=== PATIENT | female | born 1980 | race Caucasian/White ===

== ENCOUNTER 2016-04-22 22:53 | Emergency (ER) | payer OTHER ==
--- NOTE | 2016-04-23 00:02 | DIAGNOSTIC IMAGING REPORT ---
PROCEDURE: XR CHEST 2 VIEW INDICATION: CHEST PAIN TECHNIQUE: PA and lateral views. COMPARISON: None. FINDINGS: Lungs are clear. Heart and mediastinum are normal. Thorax is normal. IMPRESSION: 1. Negative chest.
--- NOTE | 2016-04-23 03:49 | ED ORDER SUMMARY ---
..... Patient: YARED ROSADO OrderSheet [facility] VisitID: [id number] [place] [address] 36y, F Registration Date/Time: 04/22/2016 ORDER SHEET Weight: 101.6 kg (stated) Allergies: Aspirin, Penicillins GENERAL ORDERS: EKG - ER Stat (23:01 04/22/2016 Donna Burgos) (Ack 23:15 CHagerty ER Yard Inspector) (23:22 SReitz R.N.) Chest 2V Urgent (23:12 04/22/2016 Donna Burgos) (Ack 23:15 CHagerty ER Yard Inspector) (0:08 GUnger) Thread Grinder Tool (Continuous) (cp) (23:12 04/22/2016 Donna Burgos) (23:22 Hernandezitz R.N.) CBC w Diff Urgent (23:13 04/22/2016 Donan Burgos) (Ack 23:15 CHagerty ER Yard Inspector) (3:23 HKone R.N.) CMP Urgent (23:13 04/22/2016 Donna Burgos) (Ack 23:15 CHagerty ER Yard Inspector) (3:23 HKone R.N.) Troponin-I Urgent (23:13 04/22/2016 Donna Burgos) (Ack 23:15 CHagerty ER Yard Inspector) (3:23 HKone R.N.) Pulse oximeter (23:13 04/22/2016 Donna Burgos) (23:22 SReitz R.N.) UA-Culture if indicated Urgent (23:14 04/22/2016 Donna Burgos) (Ack 23:15 CHagerty ER Yard Inspector) (3:23 HKone R.N.) Urine Drug Screen Urgent (23:14 04/22/2016 Donna Burgos) (Ack 23:15 CHagerty ER Yard Inspector) (3:23 HKone R.N.) Troponin-I (redraw 2 hours after first trop) Urgent (01:29 04/23/2016 Donna Burgos) (Ack 1:36 CHagerty ER Yard Inspector) (3:23 HKone R.N.) Troponin-I Urgent (09:26 04/23/2016 Donna Burgos) (9:46 DMaziarka R.N.) MEDICATION ORDERS: NitroGLYCERIN SL 0.4 mg (x3 PRN chest pain. hold for SB < 120 or map < 65) (23:13 04/22/2016 Donna Burgos) (1:01 HKone R.N.) Macrobid PO 100 mg (NOW) (03:19 04/23/2016 Donna Burgos) (Ack 3:19 HKone R.N.) (3:23 HKone R.N.) GI Cocktail WHITE PO 30 mL (NOW) (03:23 04/23/2016 Donna Burgos) (Ack 3:29 HKone R.N.) (3:34 HKone R.N.) NitroGLYCERIN SL 0.4 mg (x3 PRN Chest Pain) (03:41 04/23/2016 Donna Burgos) (3:47 HKone R.N.) Plavix PO 600 mg (HIGH ALERT MEDICATION, NOW) (03:47 04/23/2016 Donna Burgos) (Ack 3:57 HKone R.N.) (4:08 HKone R.N.) Acetaminophen PO 650 mg (NOW) (07:16 04/23/2016 DMaziarka R.N. verbal order read back to Donna Burgos) (Ack 7:16 DMaziarka R.N.) (7:19 DMaziarka R.N.) IV FLUIDS: Zofran IV 4 mg (NOW) (23:12 04/22/2016 Donna Burgos) (0:54 EBonham) IV Saline Lock (23:13 04/22/2016 Donna Burgos) (0:53 EBonham) Metoprolol IV 5 mg (NOW) (07:46 04/23/2016 Jermaineziarka R.NBabak verbal order read back to Donna Burgos) (7:47 DMaziarka R.N.) Metoprolol IV 5 mg (HIGH ALERT MEDICATION, NOW) (08:05 04/23/2016 Donna Burgos) (Cancelled: Duplicate Order8:05 Donna Burgos) ORDER SHEET NOTES: [Electronically signed by Austin Washington Dr. (10:54 04/23/2016)] [Electronically signed by Melissa Avelar R.N. (13:39 04/23/2016)] [Electronically locked/signed by Melissa Avelar R.N. (13:39 04/23/2016)]
--- NOTE | 2016-04-23 03:49 | ED CLINICAL REPORT ---
Clinical Report - Physicians/Mid Levels [facility] [address] [place] [address] 04/22/2016 22:54 Patient: YARED ROSADO Arrived- By private vehicle. Historian- patient. HISTORY OF PRESENT ILLNESS Chief Complaint: CHEST PAIN. At its maximum, severity described as severe. When seen in the E.D., severity described as severe. Modifying factors- (worsened by laying back. does not know what makes it better). This started past 2 weeks and is still present and worsening. It was abrupt in onset and has been intermittent but is not gone now. It is described as tightness and it is described as located in the right chest, central chest and left chest area. No radiation. No nausea, vomiting, difficulty breathing or diaphoresis. No additional chest pain. Similar symptoms previously: None. Recent medical care: Not recently seen/assessed. REVIEW OF SYSTEMS No fever, chills, abdominal pain or skin rash. All systems otherwise negative, except as recorded above. PAST HISTORY See nurses notes. Risk factors (reports no hemoptysis, leg swelling, recent trauma, travel) Denies the following risk factors for DVT/PE - history of DVT and pulmonary embolism, recent surgery, recent MA and congestive heart failure. Denies the following risk factors for DVT/PE - cancer, clotting disorder, estrogens, immobility and advanced in age. Denies the following risk factors for DVT/PE - vena cava filter. SOCIAL HISTORY Smoker- current status unknown. History of drug use. Is a recovering addict. No alcohol use. No recent travel. Is a local resident. FAMILY HISTORY History of heart disease (grandparents in there 50 - 60s with CHF). ADDITIONAL NOTES The nursing notes have been reviewed. PHYSICAL EXAM Vital Signs: 04/22/2016 23:01 BP: 177/92. HR: 84. RR: 18. O2 saturation: 98%. Temp: 98 F. Pain level now: 10/10. Hypertensive. Oxygen saturation normal. Appearance: Alert. Oriented X3. Patient in mild distress. No marfanoid habitus. Eyes: Pupils equal, round and reactive to light. Eyes normal inspection. ENT: Ears normal. Nose normal. Pharynx normal. Neck: Normal inspection. Neck supple. No JVD, carotid bruit or meningeal signs. CVS: Normal heart rate and rhythm. Heart sounds normal. Pulses normal. Respiratory: No respiratory distress. Breath sounds normal. Chest nontender. Abdomen: Soft and nontender. Bowel sounds normal. No organomegaly. No mass. Femoral pulses equal. No femoral pulse deficit. Back: Normal external inspection. Skin: No cyanosis. Skin warm and dry. Normal skin color. No rash. Normal skin turgor. No skin rash or diaphoresis. Extremities: Extremities exhibit normal ROM. No lower extremity edema. No calf tenderness. No lower extremity edema. Neuro: Oriented X 3. No motor deficit. No sensory deficit. LABS, X-RAYS, AND EKG EKG: No acute ischemia. Normal sinus rhythm. Rate: 80. First-degree atrioventricular block (210). Normal QRS complex. Normal axis. Normal ST and T waves and QT. Prolonged QTc (495). 1st degree block. sinus with prolonged QTC. The study has been interpreted contemporaneously by me. The study has been independently viewed by me. Artifact present. I agree with and confirm the computer reading of the EKG. Chest X-ray: (PROCEDURE: XR CHEST 2 VIEW INDICATION: CHEST PAIN TECHNIQUE: PA and lateral views. COMPARISON: None. FINDINGS: Lungs are clear. Heart and mediastinum are normal. Thorax is normal. IMPRESSION: 1. Negative chest.). Views: PA and lateral. Technique: good. The X-rays were independently viewed by me and interpreted by the radiologist. The X-rays were discussed with the radiologist (via pacs). Laboratory Tests: UA-Culture if indicated: (MAEGAN: 04/23/2016 02:25) ( MsgRcvd 04/23/2016 02:42) Final results Test Result Flag Units (Reference) URINE COLOR YELLOW URINE APPEARANCE CLEAR URINE GLUCOSE NEGATIVE (NEGATIVE) URINE BILIRUBIN NEGATIVE (NEGATIVE) URINE KETONE NEGATIVE (NEGATIVE) URINE SPECIFIC GRAVITY >= 1.030 (1.010-1.030) URINE PH 6.0 (5.0-8.0) URINE PROTEIN TRACE (NEGATIVE) URINE UROBILINOGEN 0.2 EU/dL (0.2-1.0) URINE NITRITE NEGATIVE (NEGATIVE) URINE BLOOD 2+ (NEGATIVE) URINE LEUK ESTERASE NEGATIVE (NEGATIVE) URINE RBC 1-3 rbc/hpf (0-1) URINE WBC 0-1 wbc/hpf (0-1) URINE EPITHELIAL CELLS 1-3 EPI/hpf (0-5) URINE BACTERIA MANY (4+) (NONE SEEN) URINE COMMENT CULTURE INDICATED URINE CULTURES ARE SET-UP BASED ON THE FOLLOWING CRITERIA:POSITIVE NITRITEPOSITIVE LEUKOCYTE ESTERASEGREATER THAN 10 WHITE BLOOD CELLSMODERATE (2+) OR GREATER BACTERIA CBC w Diff: (MAEGAN: 04/23/2016 00:50) ( [facility] 04/23/2016 01:00) Final results Test Result Flag Units (Reference) WHITE BLOOD COUNT 21.5 H K/uL (4.5-11.5) RED BLOOD COUNT 4.69 M/uL (4.00-5.20) HEMOGLOBIN 14.2 gm/dL (12.0-16.0) HEMATOCRIT 43.5 % (36.0-46.0) MEAN CELL VOLUME 93 fL (80-100) MEAN CORPUSCULAR HGB 30 pg (26-34) MEAN CORPUSCULAR HGB CONC 33 g/dL (31-37) RED CELL DISTRIBUTION WIDTH 13.6 % (11.6-14.8) PLATELET COUNT 352 K/uL (150-400) NEUTROPHIL % 86.3 H % (50-75) LYMPH % 11.4 L % (25-40) MONO % 1.8 L % (3-14) EOSINOPHIL % 0.2 % (0-4) BASOPHIL % 0.3 % (0-2) Troponin-I: (MAEGAN: 04/23/2016 09:43) ( [facility] 04/23/2016 10:46) Final results Test Result Flag Units (Reference) TROPONIN I 3.07 H ng/mL (0.00-1.5) CRITICAL RESULTS CALLEDCalled to PAMELA GAY IN ED 04/23/16 1045Were 2 patient identifiers used? YWas the result read back? YTROPONIN REFERENCE RANGE:<0.1 NEGATIVE0.1-1.5 INDETERMINANT>1.5 POSITIVE Urine Drug Screen: (MAEGAN: 04/23/2016 02:25) ( MdgRcvd 04/23/2016 02:46) Final results Test Result Flag Units (Reference) AMPHETAMINE/METHAMPHETAMINE NEGATIVE (NEGATIVE) BARBITURATE NEGATIVE (NEGATIVE) BENZODIAZEPINE NEGATIVE (NEGATIVE) CANNABINOID NEGATIVE (NEGATIVE) COCAINE NEGATIVE (NEGATIVE) ECSTASY NEGATIVE (NEGATIVE) METHADONE POSITIVE H (NEGATIVE) OPIATE NEGATIVE (NEGATIVE) The urine drug screen is a qualitative screening test fordrug overdose and abuse. All screen results should beconsidered as presumptive.Drugs screened for are as follows:BenzodiazepinesCocaineAmphetamines/MetamphetaminesTHC (Tetrahydrocannabinol)OpiatesBarbituratesEcstasyMethadonePositive results are unconfirmed. For confirmation, notifythe lab for the specimen to be sent to the reference lab.All confirmations must be performed by a differentmethodology.The ingestion of natural herbal and plant productscontaining Ephedra/Ephedra metabolites can produce in urineone or more substances capable of cross reacting withamphetamine/methamphetamine immunoassays. These testsprovide a preliminary result only. A more specificalternative chemical method must be used to obtain aconfirmed analytical result. Troponin-I: (MAEGAN: 04/23/2016 02:50) ( [facility] 04/23/2016 03:26) Final results Test Result Flag Units (Reference) TROPONIN I 0.68 ng/mL (0.00-1.5) TROPONIN REFERENCE RANGE:<0.1 NEGATIVE0.1-1.5 INDETERMINANT>1.5 POSITIVE CMP: (MAEGAN: 04/22/2016 23:55) ( [facility] 04/23/2016 00:29) Final results Test Result Flag Units (Reference) GLUCOSE 153 H mg/dL (70-110) BUN 14 mg/dL (7-18) CREATININE 0.8 mg/dL (0.6-1.3) Estimated GFR >60 mL/min Estimated GFR- >60 mL/min Note: Persistent reduction over 3 months in eGFR<60 mL/min/1.73 m2 defines CKD. Patients with eGFR values>=60 mL/min/1.73 m2 may also have CKD if evidence ofpersistent proteinuria. Additional information may be foundat www.kidney.org. SODIUM 139 mmol/L (136-145) POTASSIUM 3.9 mmol/L (3.5-5.1) CHLORIDE 103 mmol/L (98-107) CARBON DIOXIDE 23 mmol/L (21-32) CALCIUM 8.7 mg/dL (8.5-10.1) TOTAL PROTEIN 7.9 g/dL (6.4-8.2) ALBUMIN 4.1 g/dL (3.3-5.0) BILIRUBIN, TOTAL 0.3 mg/dL (0.0-1.0) ALKALINE PHOSPHATASE 86 U/L (46-116) AST (SGOT) 15 U/L (15-37) ALT (SGPT) 15 U/L (12-78) TROPONIN I 0.05 ng/mL (0.00-1.5) TROPONIN REFERENCE RANGE:<0.1 NEGATIVE0.1-1.5 INDETERMINANT>1.5 POSITIVE . PROGRESS AND PROCEDURES Course of Care: he patient is a pleasant 36-year-old female presenting for revised chest pain. Patient has no risk factors for coronary artery disease. The patient appears uncomfortable. Patient is a history of substance abuse. Patient states that she is on methadone. Workup for cardiac disease has been ordered. Patient is currently PERC negative. Do not feel further workup is needed at this time for evaluation of DVT. The patient's first troponin is noted to be normal. Repeat troponin after 2 hours has been ordered. The patient is reporting persistent pain. Further nitroglycerin tablets have been provided. Patient is still mildly hypertensive here in the emergency department. We'll monitor for any acute changes. Workup was remarkable for an elevation in the troponin. Patient went from a normal troponin to an intermediate troponin. Because of this, we'll consult cardiology in regards to possible NSTEMI. Had consulted Dr. Mayer at [facility] in regards to the patient's current clinical presentation. Recommended patient be admitted for further observation as well as given 600 mg of Plavix because he patient has been allergic to aspirin. Did not recommend heparin or Lovenox at this time. Unfortunately, [facility] did not have any beds available at their facility. We'll try to contact the nearest hospital that has the appropriate bed and especially coverage. patient also with UTI. abx given in ED. We were able to contact [facility] who had a bed available as well as coverage. We're currently in contact with Dr. Gan and stated the patient did not need to have immediate catheter however would need to have rule out for acute coronary disease and be monitored further. Was able to speak to a hospitalist Dr. Benjamin brown at [facility] who wanted to discuss the case with Dr. Gan prior to excepting the patient. We are currently awaiting contact from hospitalist in regards to the patient's status. At this time, would like patient to be admitted for cardiac workup and rule out. patient be transferred emergency Department emergency department. [facility] the accepting facility. Patient be transferred via ALS. Informed written consent for transfer obtained. Patient resting in bed in no acute distress. Patient reports that her chest pain has improvedsince being here in the emergency department. Patient continues to be nontoxic. Patient continues to be hemodynamically stable. Patient stable for transport. patient transferred by EMS. Patient noted to be in no acute distress upon transfer. Vital signs are normal. Patient is stable for transport. Just heard back from lab after patient trasported that troponin came back at > 3 which is higher than the second one at 0.68. Patient has ruled in for NSTEMI. Critical care performed (95 minutes). Time is exclusive of separately billable procedures. Time includes: direct patient care, patient reassessment, coordination of patient care, interpretation of data (laboratory data and chest xrays), review of patient's medical records, medical consultation and documentation of patient care. Consult obtained from cardiology. Mj Lerner. Case discussed. Disposition: Benefits, risks and alternatives to transfer explained to patient. Transferred to [facility]. Summary of care provided to transport team and EMS via paper. CLINICAL IMPRESSION 04/23/2016 08:09 BP: 149/87. HR: 68. RR: 18. O2 saturation: 98%. Blood pressure normal. Oxygen saturation normal. NSTEMI UTI, acute. (Electronically signed by Austin Washington Dr. 04/23/2016 10:54)
--- NOTE | 2016-04-23 03:49 | ED CLINICAL REPORT ---
Clinical Report - Physicians/Mid Levels [facility] [address] [place] [address] 04/22/2016 22:54 Patient: YARED ROSADO Arrived- By private vehicle. Historian- patient. HISTORY OF PRESENT ILLNESS Chief Complaint: CHEST PAIN. At its maximum, severity described as severe. When seen in the E.D., severity described as severe. Modifying factors- (worsened by laying back. does not know what makes it better). This started past 2 weeks and is still present and worsening. It was abrupt in onset and has been intermittent but is not gone now. It is described as tightness and it is described as located in the right chest, central chest and left chest area. No radiation. No nausea, vomiting, difficulty breathing or diaphoresis. No additional chest pain. Similar symptoms previously: None. Recent medical care: Not recently seen/assessed. REVIEW OF SYSTEMS No fever, chills, abdominal pain or skin rash. All systems otherwise negative, except as recorded above. PAST HISTORY See nurses notes. Risk factors (reports no hemoptysis, leg swelling, recent trauma, travel) Denies the following risk factors for DVT/PE - history of DVT and pulmonary embolism, recent surgery, recent NH and congestive heart failure. Denies the following risk factors for DVT/PE - cancer, clotting disorder, estrogens, immobility and advanced in age. Denies the following risk factors for DVT/PE - vena cava filter. SOCIAL HISTORY Smoker- current status unknown. History of drug use. Is a recovering addict. No alcohol use. No recent travel. Is a local resident. FAMILY HISTORY History of heart disease (grandparents in there 50 - 60s with CHF). ADDITIONAL NOTES The nursing notes have been reviewed. PHYSICAL EXAM Vital Signs: 04/22/2016 23:01 BP: 177/92. HR: 84. RR: 18. O2 saturation: 98%. Temp: 98 F. Pain level now: 10/10. Hypertensive. Oxygen saturation normal. Appearance: Alert. Oriented X3. Patient in mild distress. No marfanoid habitus. Eyes: Pupils equal, round and reactive to light. Eyes normal inspection. ENT: Ears normal. Nose normal. Pharynx normal. Neck: Normal inspection. Neck supple. No JVD, carotid bruit or meningeal signs. CVS: Normal heart rate and rhythm. Heart sounds normal. Pulses normal. Respiratory: No respiratory distress. Breath sounds normal. Chest nontender. Abdomen: Soft and nontender. Bowel sounds normal. No organomegaly. No mass. Femoral pulses equal. No femoral pulse deficit. Back: Normal external inspection. Skin: No cyanosis. Skin warm and dry. Normal skin color. No rash. Normal skin turgor. No skin rash or diaphoresis. Extremities: Extremities exhibit normal ROM. No lower extremity edema. No calf tenderness. No lower extremity edema. Neuro: Oriented X 3. No motor deficit. No sensory deficit. LABS, X-RAYS, AND EKG EKG: No acute ischemia. Normal sinus rhythm. Rate: 80. First-degree atrioventricular block (210). Normal QRS complex. Normal axis. Normal ST and T waves and QT. Prolonged QTc (495). 1st degree block. sinus with prolonged QTC. The study has been interpreted contemporaneously by me. The study has been independently viewed by me. Artifact present. I agree with and confirm the computer reading of the EKG. Chest X-ray: (PROCEDURE: XR CHEST 2 VIEW INDICATION: CHEST PAIN TECHNIQUE: PA and lateral views. COMPARISON: None. FINDINGS: Lungs are clear. Heart and mediastinum are normal. Thorax is normal. IMPRESSION: 1. Negative chest.). Views: PA and lateral. Technique: good. The X-rays were independently viewed by me and interpreted by the radiologist. The X-rays were discussed with the radiologist (via pacs). Laboratory Tests: UA-Culture if indicated: (MAEGAN: 04/23/2016 02:25) ( MsgRcvd 04/23/2016 02:42) Final results Test Result Flag Units (Reference) URINE COLOR YELLOW URINE APPEARANCE CLEAR URINE GLUCOSE NEGATIVE (NEGATIVE) URINE BILIRUBIN NEGATIVE (NEGATIVE) URINE KETONE NEGATIVE (NEGATIVE) URINE SPECIFIC GRAVITY >= 1.030 (1.010-1.030) URINE PH 6.0 (5.0-8.0) URINE PROTEIN TRACE (NEGATIVE) URINE UROBILINOGEN 0.2 EU/dL (0.2-1.0) URINE NITRITE NEGATIVE (NEGATIVE) URINE BLOOD 2+ (NEGATIVE) URINE LEUK ESTERASE NEGATIVE (NEGATIVE) URINE RBC 1-3 rbc/hpf (0-1) URINE WBC 0-1 wbc/hpf (0-1) URINE EPITHELIAL CELLS 1-3 EPI/hpf (0-5) URINE BACTERIA MANY (4+) (NONE SEEN) URINE COMMENT CULTURE INDICATED URINE CULTURES ARE SET-UP BASED ON THE FOLLOWING CRITERIA:POSITIVE NITRITEPOSITIVE LEUKOCYTE ESTERASEGREATER THAN 10 WHITE BLOOD CELLSMODERATE (2+) OR GREATER BACTERIA CBC w Diff: (MAEGAN: 04/23/2016 00:50) ( [facility] Final results Test Result Flag Units (Reference) WHITE BLOOD COUNT 21.5 H K/uL (4.5-11.5) RED BLOOD COUNT 4.69 M/uL (4.00-5.20) HEMOGLOBIN 14.2 gm/dL (12.0-16.0) HEMATOCRIT 43.5 % (36.0-46.0) MEAN CELL VOLUME 93 fL (80-100) MEAN CORPUSCULAR HGB 30 pg (26-34) MEAN CORPUSCULAR HGB CONC 33 g/dL (31-37) RED CELL DISTRIBUTION WIDTH 13.6 % (11.6-14.8) PLATELET COUNT 352 K/uL (150-400) NEUTROPHIL % 86.3 H % (50-75) LYMPH % 11.4 L % (25-40) MONO % 1.8 L % (3-14) EOSINOPHIL % 0.2 % (0-4) BASOPHIL % 0.3 % (0-2) Troponin-I: (MAEGAN: 04/23/2016 09:43) ( [facility] 04/23/2016 10:46) Final results Test Result Flag Units (Reference) TROPONIN I 3.07 H ng/mL (0.00-1.5) CRITICAL RESULTS CALLEDCalled to PAMELA GAY IN ED 04/23/16 1045Were 2 patient identifiers used? YWas the result read back? YTROPONIN REFERENCE RANGE:<0.1 NEGATIVE0.1-1.5 INDETERMINANT>1.5 POSITIVE Urine Drug Screen: (MAEGAN: 04/23/2016 02:25) ( AlgRcvd 04/23/2016 02:46) Final results Test Result Flag Units (Reference) AMPHETAMINE/METHAMPHETAMINE NEGATIVE (NEGATIVE) BARBITURATE NEGATIVE (NEGATIVE) BENZODIAZEPINE NEGATIVE (NEGATIVE) CANNABINOID NEGATIVE (NEGATIVE) COCAINE NEGATIVE (NEGATIVE) ECSTASY NEGATIVE (NEGATIVE) METHADONE POSITIVE H (NEGATIVE) OPIATE NEGATIVE (NEGATIVE) The urine drug screen is a qualitative screening test fordrug overdose and abuse. All screen results should beconsidered as presumptive.Drugs screened for are as follows:BenzodiazepinesCocaineAmphetamines/MetamphetaminesTHC (Tetrahydrocannabinol)OpiatesBarbituratesEcstasyMethadonePositive results are unconfirmed. For confirmation, notifythe lab for the specimen to be sent to the reference lab.All confirmations must be performed by a differentmethodology.The ingestion of natural herbal and plant productscontaining Ephedra/Ephedra metabolites can produce in urineone or more substances capable of cross reacting withamphetamine/methamphetamine immunoassays. These testsprovide a preliminary result only. A more specificalternative chemical method must be used to obtain aconfirmed analytical result. Troponin-I: (MAEGAN: 04/23/2016 02:50) ( [facility]/2016 03:26) Final results Test Result Flag Units (Reference) TROPONIN I 0.68 ng/mL (0.00-1.5) TROPONIN REFERENCE RANGE:<0.1 NEGATIVE0.1-1.5 INDETERMINANT>1.5 POSITIVE CMP: (MAEGAN: 04/22/2016 23:55) ( [facility] 04/23/2016 00:29) Final results Test Result Flag Units (Reference) GLUCOSE 153 H mg/dL (70-110) BUN 14 mg/dL (7-18) CREATININE 0.8 mg/dL (0.6-1.3) Estimated GFR >60 mL/min Estimated GFR- >60 mL/min Note: Persistent reduction over 3 months in eGFR<60 mL/min/1.73 m2 defines CKD. Patients with eGFR values>=60 mL/min/1.73 m2 may also have CKD if evidence ofpersistent proteinuria. Additional information may be foundat www.kidney.org. SODIUM 139 mmol/L (136-145) POTASSIUM 3.9 mmol/L (3.5-5.1) CHLORIDE 103 mmol/L (98-107) CARBON DIOXIDE 23 mmol/L (21-32) CALCIUM 8.7 mg/dL (8.5-10.1) TOTAL PROTEIN 7.9 g/dL (6.4-8.2) ALBUMIN 4.1 g/dL (3.3-5.0) BILIRUBIN, TOTAL 0.3 mg/dL (0.0-1.0) ALKALINE PHOSPHATASE 86 U/L (46-116) AST (SGOT) 15 U/L (15-37) ALT (SGPT) 15 U/L (12-78) TROPONIN I 0.05 ng/mL (0.00-1.5) TROPONIN REFERENCE RANGE:<0.1 NEGATIVE0.1-1.5 INDETERMINANT>1.5 POSITIVE . PROGRESS AND PROCEDURES Course of Care: he patient is a pleasant 36-year-old female presenting for revised chest pain. Patient has no risk factors for coronary artery disease. The patient appears uncomfortable. Patient is a history of substance abuse. Patient states that she is on methadone. Workup for cardiac disease has been ordered. Patient is currently PERC negative. Do not feel further workup is needed at this time for evaluation of DVT. The patient's first troponin is noted to be normal. Repeat troponin after 2 hours has been ordered. The patient is reporting persistent pain. Further nitroglycerin tablets have been provided. Patient is still mildly hypertensive here in the emergency department. We'll monitor for any acute changes. Workup was remarkable for an elevation in the troponin. Patient went from a normal troponin to an intermediate troponin. Because of this, we'll consult cardiology in regards to possible NSTEMI. Had consulted Dr. Mayer at [facility] in regards to the patient's current clinical presentation. Recommended patient be admitted for further observation as well as given 600 mg of Plavix because he patient has been allergic to aspirin. Did not recommend heparin or Lovenox at this time. Unfortunately, [facility] did not have any beds available at their facility. We'll try to contact the nearest hospital that has the appropriate bed and especially coverage. patient also with UTI. abx given in ED. We were able to contact [facility] who had a bed available as well as coverage. We're currently in contact with Dr. Gan and stated the patient did not need to have immediate catheter however would need to have rule out for acute coronary disease and be monitored further. Was able to speak to a hospitalist Dr. Benjamin brown at [facility] who wanted to discuss the case with Dr. Gan prior to excepting the patient. We are currently awaiting contact from hospitalist in regards to the patient's status. At this time, would like patient to be admitted for cardiac workup and rule out. patient be transferred emergency Department emergency department. [facility] the accepting facility. Patient be transferred via ALS. Informed written consent for transfer obtained. Patient resting in bed in no acute distress. Patient reports that her chest pain has improvedsince being here in the emergency department. Patient continues to be nontoxic. Patient continues to be hemodynamically stable. Patient stable for transport. patient transferred by EMS. Patient noted to be in no acute distress upon transfer. Vital signs are normal. Patient is stable for transport. Just heard back from lab after patient trasported that troponin came back at > 3 which is higher than the second one at 0.68. Patient has ruled in for NSTEMI. Critical care performed (95 minutes). Time is exclusive of separately billable procedures. Time includes: direct patient care, patient reassessment, coordination of patient care, interpretation of data (laboratory data and chest xrays), review of patient's medical records, medical consultation and documentation of patient care. Consult obtained from cardiology. Mj Lrener. Case discussed. Disposition: Benefits, risks and alternatives to transfer explained to patient. Transferred to [facility]. Summary of care provided to transport team and EMS via paper. CLINICAL IMPRESSION 04/23/2016 08:09 BP: 149/87. HR: 68. RR: 18. O2 saturation: 98%. Blood pressure normal. Oxygen saturation normal. NSTEMI UTI, acute. (Electronically signed by Austin Washington Dr. 04/23/2016 10:54)
--- NOTE | 2016-04-23 03:49 | ED ORDER SUMMARY ---
..... Patient: YARED ROSADO OrderSheet [facility] VisitID: [id number] [place] [address] 36y, F Registration Date/Time: 04/22/2016 ORDER SHEET Weight: 101.6 kg (stated) Allergies: Aspirin, Penicillins GENERAL ORDERS: EKG - ER Stat (23:01 04/22/2016 Donna Burgos) (Ack 23:15 CHagerty ER [employer] Worker) (23:22 SReitz R.N.) Chest 2V Urgent (23:12 04/22/2016 Donna Burgos) (Ack 23:15 CHagerty ER [employer] Worker) (0:08 GUnger) Counter Help (Continuous) (cp) (23:12 04/22/2016 Donna Burgos) (23:22 Hernandezitz R.N.) CBC w Diff Urgent (23:13 04/22/2016 Donna Burgos) (Ack 23:15 CHagerty ER [employer] Worker) (3:23 HKone R.N.) CMP Urgent (23:13 04/22/2016 Donna Burgos) (Ack 23:15 CHagerty ER [employer] Worker) (3:23 HKone R.N.) Troponin-I Urgent (23:13 04/22/2016 Donna Burgos) (Ack 23:15 CHagerty ER [employer] Worker) (3:23 HKone R.N.) Pulse oximeter (23:13 04/22/2016 Donna Burgos) (23:22 SReitz R.N.) UA-Culture if indicated Urgent (23:14 04/22/2016 Donna Burgos) (Ack 23:15 CHagerty ER [employer] Worker) (3:23 HKone R.N.) Urine Drug Screen Urgent (23:14 04/22/2016 oDnna Burgos) (Ack 23:15 CHagerty ER [employer] Worker) (3:23 HKone R.N.) Troponin-I (redraw 2 hours after first trop) Urgent (01:29 04/23/2016 Donna Burgos) (Ack 1:36 CHagerty ER [employer] Worker) (3:23 HKone R.N.) Troponin-I Urgent (09:26 04/23/2016 Donna Burgos) (9:46 DMaziarka R.N.) MEDICATION ORDERS: NitroGLYCERIN SL 0.4 mg (x3 PRN chest pain. hold for SB < 120 or map < 65) (23:13 04/22/2016 Donna Burgos) (1:01 HKone R.N.) Macrobid PO 100 mg (NOW) (03:19 04/23/2016 Donna Burgos) (Ack 3:19 HKone R.N.) (3:23 HKone R.N.) GI Cocktail WHITE PO 30 mL (NOW) (03:23 04/23/2016 Donna Burgos) (Ack 3:29 HKone R.N.) (3:34 HKone R.N.) NitroGLYCERIN SL 0.4 mg (x3 PRN Chest Pain) (03:41 04/23/2016 Donna Burgos) (3:47 HKone R.N.) Plavix PO 600 mg (HIGH ALERT MEDICATION, NOW) (03:47 04/23/2016 Donna Burgos) (Ack 3:57 HKone R.N.) (4:08 HKone R.N.) Acetaminophen PO 650 mg (NOW) (07:16 04/23/2016 DMaziarka R.N. verbal order read back to Donna Burgos) (Ack 7:16 DMaziarka R.N.) (7:19 DMaziarka R.N.) IV FLUIDS: Zofran IV 4 mg (NOW) (23:12 04/22/2016 Donna Burgos) (0:54 EBonham) IV Saline Lock (23:13 04/22/2016 Donna Burgos) (0:53 EBonham) Metoprolol IV 5 mg (NOW) (07:46 04/23/2016 Jermaineziarka R.NBabak verbal order read back to Donna Burgos) (7:47 DMaziarka R.N.) Metoprolol IV 5 mg (HIGH ALERT MEDICATION, NOW) (08:05 04/23/2016 Donna Burgos) (Cancelled: Duplicate Order8:05 Donna Burgos) ORDER SHEET NOTES: [Electronically signed by Austin Washington Dr. (10:54 04/23/2016)] [Electronically signed by Melissa Avelar R.N. (13:39 04/23/2016)] [Electronically locked/signed by Melissa Avelar R.N. (13:39 04/23/2016)]
--- NOTE | 2016-04-23 03:49 | ED NURSING NOTES ---
Clinical Report - Nurses [facility] [address] [place] [address] 04/22/2016 22:54 Patient: YARED ROSADO TRIAGE Triage time 23:01. Acuity: LEVEL 3. Chief Complaint: CHEST DISCOMFORT and SHORTNESS OF BREATH. Alert. No acute distress. SEPSIS SCREEN: Sepsis Screen. Negative (no infection suspected/documented). BETTIE COMA SCORE: Ringold Coma Scale: 15- eyes open spontaneously (4); best verbal response- oriented x 4 (5); best motor response- obeys commands (6). --23:18 Gaby Corcoran R.N. 23:01 04/22/16. BP: 177/92. HR: 84. RR: 18. O2 saturation: 98%. Temp: 98 F. Pain level now: 01/10.. Describes the quality as pressure ("feels like someone is squeezing my heart"). --23:18 Gaby Corcoran R.N. Weight: 101.6 kg stated. Height/Length: 69 inches Per Patient. BMI: 33.1. --23:10 Gaby Corcoran R.N. Medications Methadone HCl Oral. --23:08 Gaby Corcoran R.N. Ranitidine HCl Oral. --23:08 Gaby Corcoran R.N. Ibuprofen Oral, as needed. --23:08 Gaby Corcoran R.N. Benadryl Oral, as needed. --23:17 Gaby Corcoran R.N. Allergies Aspirin.(hives) --23:08 Gaby Corcoran R.N. Penicillins.(Anaphylaxis) --23:08 Gaby Corcoran R.N. History Arrived by private vehicle. Historian: patient. Accompanied by sister. Primary physician (Roger). Onset. (2 weeks ago symptoms come and go. Pt. states tonight the pain seems worse than before.). Treatment COMPUTER METEOROLOGIST: None. PAST MEDICAL HX: Immunizations: up-to-date. Last normal menstrual period now. SOCIAL HX: Heavy tobacco smoker (cigarette)- less than 1 pack per day. History of IV drug use: heroin. (has not used for 8 years.). No alcohol use. No infectious disease exposure. ABUSE ASSESSMENT: No report of abuse. NUTRITIONAL RISK ASSESSMENT: The nutritional risk assessment revealed no deficiencies. FUNCTIONAL ASSESSMENT: Functional assessment: no impairments noted. LEARNING NEEDS ASSESSMENT: The learning needs assessment revealed no barriers. --23:18 Gaby Corcoran R.N. <<STRICKEN ENTRY-- ( Pt reports taking Aspirin 650 MG 2-3 times a day for a few days). --10:54 Melissa Avelar R.N. --END STRIKE>> Charted On Wrong Patient --10:56 Melissa Avelar R.N. PROBLEMS: Bronchitis. Hypertension. Pulmonary Nodule. Blepharitis. Hematuria. Flank Pain. Chronic abdominal pain. Abdominal Pain. TMJ Syndrome. Jaw pain rt side . Pyelonephritis. Cystitis. Knee Injury. Osteoarthritis of Knee. Back Pain. --23:07 Gaby Corcoran R.N. ADDITIONAL SURGERIES: . Kidney stones. Knee Surgery. Laparoscopy. Lithotripsy. Sinus Surgery. Tonsillectomy. --23:07 Gaby Corcoran R.N. Interventions ID and allergy band on patient. Transported via wheelchair. --23:18 Gaby Corcoran R.N. PHYSICAL ASSESSMENT To room via wheelchair. GENERAL / NEURO / PSYCH: Alert. Oriented X 4. Appears anxious. HEENT: Mucous membranes are pink. RESPIRATORY: Respirations not labored. CVS: Pulses within normal limits. Capillary refill less than 2 seconds. GI / : Abdomen soft. EXTREMITIES: No lower extremity edema. SKIN: Skin is warm and dry. Skin is non-tender. --23:21 Gaby Corcoran R.N. NURSING PROGRESS NOTES monitor and storage bin tender, pulse oximeter and NIBP monitor placed on patient; cardiac catheterization technologist- Lead II; monitor alarms on. Patient gowned. Head of bed elevated. Two patient identifiers checked. Call light placed in reach. Side rails up x 2. Bed placed in lowest position. Brakes of bed on. Patient ready for evaluation- chart flagged. --23:22 Gaby Corcoran R.N. EKG time: (2649). EKG was ordered, performed by a tech and shown to the ED physician. --23:22 Gaby Corcoran R.N. 23:25 04/22/2016 Two (2) unsuccessful IV access attempts including the left antecubital space. Applied bandaid and manual pressure. --23:25 Gaby Corcoran R.N. Care transferred and report received (from PAMELA Griffin). --23:52 Stacey Bruno R.N. 23:44 04/22/2016 Two (2) unsuccessful IV access attempts including the left antecubital space and forearm. --23:54 Rei Johnson R.N. 00:52 04/23/2016 Nitroglycerin SL Tablets 0.4 mg given. Allergies verified and confirmed 5 rights. --01:01 Stacey Bruno R.N. 00:53 04/23/2016 Site #1 started via IV in the right antecubital space with an 22g angiocath, with aseptic technique and good blood return; two attempts. Saline lock flushed with 10 mL saline (Pt had multiple attempts by multiple nurses prior, >15 attempts). --00:53 Tiffany James 00:53 04/23/2016 Zofran (Ondansetron HCl) IVP 4 mg given. via site #1. Allergies verified and confirmed 5 rights. IV patency established. IV site checked: no pain, redness, or swelling. IV flushed thoroughly pre- and post-medication administration. IVP given by RN. --00:54 Tiffany James 00:58 04/23/2016 Nitroglycerin SL Response: symptoms are the same. --01:03 Stacey Bruno R.N. 01:00 04/23/2016 Nitroglycerin SL Tablets 0.4 mg given. Allergies verified and confirmed 5 rights. --01:04 Stacey Bruno R.N. 00:50 04/23/16. BP: 175/97. HR: 82. RR: 118 (unlabored). O2 saturation: 100% on room air. Pain level now: 01/10. --01:25 Stacey Bruno R.N. 00:58 chest pain the same after 1st nitro, 01/10. --01:26 Stacey Bruno R.N. 01:00 04/23/16. BP: 159/91. HR: 84. RR: 18 (unlabored). O2 saturation: 96% on room air. Pain level now: 01/10. --01:26 Stacey Bruno R.N. 01:07 pt's chest pain still 01/10 after 2nd nitro. --01:27 Stacey Bruno R.N. 01:10 04/23/16. BP: 150/81. HR: 81. RR: 18 (unlabored). O2 saturation: 98% on room air. Pain level now: 01/10. --01:28 Stacey Bruno R.N. 01:10 04/23/2016 Nitroglycerin SL Tablets 0.4 mg given. Allergies verified and confirmed 5 rights. --01:29 Stacey Bruno R.N. Patient ID band checked for patient name and birthdate: patient confirmed. Catheterized urine collected with return of yellow-colored cloudy urine; sample sent to lab for urinalysis and drug screen. Specimen labeled in the presence of the patient (0225 pt on her period.). --02:33 Stacey Bruno R.N. 03:23 04/23/2016 Macrobid PO Capsules 100 mg given. Allergies verified and confirmed 5 rights. --03:23 Stacey Bruno R.N. pt waiting for second troponin result. --03:24 Stacey Bruno R.N. 03:34 04/23/2016 GI COCKTAIL WHITE (Simethicone) PO Oral Suspension 30 mL given. Allergies verified and confirmed 5 rights. --03:34 Stacey Bruno R.N. 03:43 04/23/2016 Nitroglycerin SL Tablets 0.4 mg given. Allergies verified and confirmed 5 rights. --03:47 Stacey Bruno R.N. 03:50 04/23/2016 Nitroglycerin SL Tablets 0.4 mg given. Allergies verified and confirmed 5 rights. --04:07 Stacey Bruno R.N. 04:00 04/23/2016 Nitroglycerin SL Tablets 0.4 mg given. Allergies verified and confirmed 5 rights. --04:07 Stacey Bruno R.N. 04:08 04/23/2016 Plavix (Clopidogrel Bisulfate) PO Tablets 600 mg given. Allergies verified and confirmed 5 rights. --04:08 Stacey Bruno R.N. 02:00 04/23/16. BP: 150/73. HR: 82. RR: 18. O2 saturation: 98% on room air. Temp: deferred. Pain level now: 11/10. --04:10 Stacey Bruno R.N. 03:00 04/23/16. BP: 159/86. HR: 86. RR: 18 (unlabored). O2 saturation: 99% on room air. Pain level now: 11/10. --04:11 Stacey Bruno R.N. 03:43 04/23/16. BP: 166/86. HR: 80. RR: 18 (unlabored). O2 saturation: 98% on room air. Pain level now: 11/10. --04:11 Stacey Bruno R.N. 03:50 04/23/16. BP: 143/80. HR: 86. RR: 18. O2 saturation: 98% on room air. Pain level now: 11/10. --04:12 Stacey Bruno R.N. 03:49 pt states no change with 1st nitro, chest pain 11/10. --04:12 Stacey Bruno R.N. 04:00 pt's chest pain still 11/10 after 2nd nitro. --04:13 Stacey Bruno R.N. 04:00 04/23/16. BP: 158/86. HR: 85. RR: 18 (unlabored). O2 saturation: 98% on room air. Pain level now: 11/10. --04:14 Stacey Bruno R.N. 04:07 pt states no change with chest pain, 11/10. notified. --04:14 Stacey Bruno R.N. pt up to bathroom with no assist. pt placed back on cardiac catheterization technologist. --05:06 Stacey Bruno R.N. 05:00 04/23/16. BP: 164/99. HR: 73. RR: 18 (unlabored). O2 saturation: 98% on room air. Pain level now: 11/10. --05:19 Stacey Bruno R.N. pt continues to c/o headache and chest pain. pt offered Tylenol, pt refused. pt given an extra pillow per request. --05:20 Stacey Bruno R.N. 06:10 04/23/16. BP: 157/96. HR: 78. RR: 16 (unlabored). O2 saturation: 98% on room air. Additional comments: pt sleeping. --06:22 Stacey Bruno R.N. Cardiac rhythm: normal sinus rhythm. --06:22 Stacey Bruno R.N. ( C/O headache MD aware Assumed care of patient sitting up at bedside). HEENT: The patient reports headache. Patient waiting for transportation. --07:13 Melissa Avelar R.N. 07:12 04/23/16. BP: 163/104. HR: 80. RR: 16. O2 saturation: 94%. Pain level now 09/10. --07:13 Melissa Avelar R.N. 07:19 04/23/2016 Acetaminophen (APAP) PO 650 mg given. Allergies verified and confirmed 5 rights. --07:19 Melissa Avelar R.N. 07:36 04/23/2016 Site #2 started via IV in the left hand with an 18g angiocath using 1% intra-dermal lidocaine, with aseptic technique and good blood return; one attempt. Saline lock flushed with 10 mL saline. --07:36 Melissa Avelar R.N. 07:47 04/23/2016 Metoprolol (Metoprolol Tartrate) IVP 5 mg given. via site #2. Allergies verified and confirmed 5 rights. IV patency established. IV site checked: no pain, redness, or swelling. IV flushed thoroughly pre- and post-medication administration. IVP given by RN. --07:47 Melissa Avelar R.N. ( B/P prior to Metoprolol 171/88 during push 171/94 and post infusion 157/88). --07:49 Melissa Avelar R.N. Overall patient status- she states feels the same. ( Pt moaning in discomfort). --08:10 Melissa Avelar R.N. 08:09 04/23/16. BP: 149/87. HR: 68. RR: 18. O2 saturation: 98%. Pain level now 08/10. --08:10 Melissa Avelar R.N. 08:20. Overall patient status is the same. ( Pt up to BR without assistance brennan well.). Patient waiting for transportation. ( Awaiting acceptance from [facility] for transport). --08:44 Melissa Avelar R.N. The patient is sleeping. --09:04 Melissa Avelar R.N. ( Up to bathroom brennan well awaiting transport anytime to ). --10:06 Melissa Avelar R.N. 10:04 04/23/16. BP: 162/86. HR: 86. RR: 16. O2 saturation: 95%. Pain level now 08/10. --10:06 Melissa Avelar R.N. DISPOSITION / DISCHARGE Cardiac rhythm: normal sinus rhythm. Departure time: 1045. Condition at departure: stable. Transported via ambulance by nurse with monitor and IV. ( Report to triage nurse). --10:57 Melissa Avelar R.N. 10:56 04/23/16. BP: 168/84. HR: 78. RR: 16. O2 saturation: 95%. Pain level now 08/10. --10:57 Melissa Avelar R.N. ( Troponin critical report 3.07 and given to and transfer center). --10:58 Melissa Avelar R.N. Locked/Released at 04/23/2016 13:39 by Melissa Avelar R.N.
--- NOTE | 2016-04-23 13:39 | ED DISCHARGE INSTRUCTIONS ---
Patient: YARED ROSADO General Instructions [facility] VisitID: [id number] [address] [place] [address] 36y, F Registration Date/Time: 04/22/2016 04/23/2016 08:09 BP: 149/87. HR: 68. RR: 18. O2 saturation: 98%. Blood pressure normal. Oxygen saturation normal. NSTEMI UTI, acute. (Electronically signed by [address]. 04/23/2016 10:54)
--- NOTE | 2016-04-23 13:39 | ED DISCHARGE INSTRUCTIONS ---
Patient: YARED ROSADO General Instructions [facility] VisitID: [id number] [address] [place] [address] 36y, F Registration Date/Time: 04/22/2016 04/23/2016 08:09 BP: 149/87. HR: 68. RR: 18. O2 saturation: 98%. Blood pressure normal. Oxygen saturation normal. NSTEMI UTI, acute. (Electronically signed by [address]. 04/23/2016 10:54)
--- NOTE | 2016-04-23 13:39 | ED MAR SUMMARY ---
..... Medication Administration Record [facility] [address] [place] [address] Patient: YARED ROSADO Visit ID: [id number] 36y, F Weight: 101.6 kg Height/Length: 69 in BMI: 33.1 ALLERGIES: Penicillins, Aspirin Given 00:52 04/23/2016 Stacey Bruno R.N. Medication Administered: NITROGLYCERIN [SL], Dose: 0.4 mg Tablets SL. Medication Ordered: NitroGLYCERIN SL 0.4 mg (x3 PRN chest pain. hold for SB < 120 or map < 65). Given 00:53 04/23/2016 Tiffany James, Medication Administered: ZOFRAN [IVP] (ONDANSETRON HCL), Dose: 4 mg IVP, Site: #1 right AC. Medication Ordered: Zofran IV 4 mg (NOW). Given 01:00 04/23/2016 Stacey Bruno R.N. Medication Administered: NITROGLYCERIN [SL], Dose: 0.4 mg Tablets SL. Medication Ordered: NitroGLYCERIN SL 0.4 mg (x3 PRN chest pain. hold for SB < 120 or map < 65). Given 01:10 04/23/2016 Stacey Bruno R.N. Medication Administered: NITROGLYCERIN [SL], Dose: 0.4 mg Tablets SL. Medication Ordered: NitroGLYCERIN SL 0.4 mg (x3 PRN chest pain. hold for SB < 120 or map < 65). Given 03:23 04/23/2016 Stacey Bruno R.N. Medication Administered: MACROBID [PO], Dose: 100 mg Capsules PO. Medication Ordered: Macrobid PO 100 mg (NOW). Given 03:34 04/23/2016 Stacey Bruno R.N. Medication Administered: GI COCKTAIL WHITE [PO] (SIMETHICONE), Dose: 30 mL Oral Suspension PO. Medication Ordered: GI Cocktail WHITE PO 30 mL (NOW). Given 03:43 04/23/2016 Stacey Bruno R.N. Medication Administered: NITROGLYCERIN [SL], Dose: 0.4 mg Tablets SL. Medication Ordered: NitroGLYCERIN SL 0.4 mg (x3 PRN Chest Pain). Given 03:50 04/23/2016 Stacey Bruno R.N. Medication Administered: NITROGLYCERIN [SL], Dose: 0.4 mg Tablets SL. Medication Ordered: NitroGLYCERIN SL 0.4 mg (x3 PRN Chest Pain). Given 04:00 04/23/2016 Stacey Bruno R.N. Medication Administered: NITROGLYCERIN [SL], Dose: 0.4 mg Tablets SL. Medication Ordered: NitroGLYCERIN SL 0.4 mg (x3 PRN Chest Pain). Given 04:08 04/23/2016 Stacey Bruno R.N. Medication Administered: PLAVIX [PO] (CLOPIDOGREL BISULFATE), Dose: 600 mg Tablets PO. Medication Ordered: Plavix PO 600 mg (HIGH ALERT MEDICATION, NOW). Given 07:19 04/23/2016 Melissa Avelar R.N. Medication Administered: ACETAMINOPHEN [PO] (APAP), Dose: 650 mg PO. Medication Ordered: Acetaminophen PO 650 mg (NOW). Given 07:47 04/23/2016 Melissa Avelar R.N. Medication Administered: METOPROLOL [IVP] (METOPROLOL TARTRATE), Dose: 5 mg IVP, Site: #2 left hand. Medication Ordered: Metoprolol IV 5 mg (NOW).
--- NOTE | 2016-04-23 13:39 | ED MED RECONCILIATION SUMMARY ---
Patient: YARED ROSADO Medication Reconciliation Report [facility] VisitID: [id number] [address] [place] [address] 36y, F Registration Date/Time: 04/22/2016 Weight: 101.6 kg Height/Length: 69 in. BMI: 33.1 ALLERGIES: Aspirin, Penicillins The patient's Home Medications are listed below: THE FOLLOWING MEDICATIONS NEED TO BE RECONCILED: Benadryl Oral Ibuprofen Oral Methadone HCl Oral Ranitidine HCl Oral The source(s) of the original Home Medication information: Not obtained. The following Medications were given to the patient in the Emergency Department: Zofran [IVP] IVP 4 mg, administered: 04/23/2016 12:53:00 AM Nitroglycerin [SL] SL 0.4 mg, administered: 04/23/2016 12:52:00 AM Nitroglycerin [SL] SL 0.4 mg, administered: 04/23/2016 1:00:00 AM Nitroglycerin [SL] SL 0.4 mg, administered: 04/23/2016 1:10:00 AM Macrobid [PO] PO 100 mg, administered: 04/23/2016 3:23:00 AM GI COCKTAIL WHITE [PO] PO 30 mL, administered: 04/23/2016 3:34:00 AM Nitroglycerin [SL] SL 0.4 mg, administered: 04/23/2016 3:43:00 AM Nitroglycerin [SL] SL 0.4 mg, administered: 04/23/2016 3:50:00 AM Nitroglycerin [SL] SL 0.4 mg, administered: 04/23/2016 4:00:00 AM Plavix [PO] PO 600 mg, administered: 04/23/2016 4:08:00 AM Acetaminophen [PO] PO 650 mg, administered: 04/23/2016 7:19:00 AM Metoprolol [IVP] IVP 5 mg, administered: 04/23/2016 7:47:00 AM The following Medications were prescribed to the patient: None.
--- NOTE | 2016-04-23 13:39 | ED MED RECONCILIATION SUMMARY ---
Patient: YARED ROSADO Medication Reconciliation Report [facility] VisitID: [id number] [address] [place] [address] 36y, F Registration Date/Time: 04/22/2016 Weight: 101.6 kg Height/Length: 69 in. BMI: 33.1 ALLERGIES: Aspirin, Penicillins The patient's Home Medications are listed below: THE FOLLOWING MEDICATIONS NEED TO BE RECONCILED: Benadryl Oral Ibuprofen Oral Methadone HCl Oral Ranitidine HCl Oral The source(s) of the original Home Medication information: Not obtained. The following Medications were given to the patient in the Emergency Department: Zofran [IVP] IVP 4 mg, administered: 04/23/2016 12:53:00 AM Nitroglycerin [SL] SL 0.4 mg, administered: 04/23/2016 12:52:00 AM Nitroglycerin [SL] SL 0.4 mg, administered: 04/23/2016 1:00:00 AM Nitroglycerin [SL] SL 0.4 mg, administered: 04/23/2016 1:10:00 AM Macrobid [PO] PO 100 mg, administered: 04/23/2016 3:23:00 AM GI COCKTAIL WHITE [PO] PO 30 mL, administered: 04/23/2016 3:34:00 AM Nitroglycerin [SL] SL 0.4 mg, administered: 04/23/2016 3:43:00 AM Nitroglycerin [SL] SL 0.4 mg, administered: 04/23/2016 3:50:00 AM Nitroglycerin [SL] SL 0.4 mg, administered: 04/23/2016 4:00:00 AM Plavix [PO] PO 600 mg, administered: 04/23/2016 4:08:00 AM Acetaminophen [PO] PO 650 mg, administered: 04/23/2016 7:19:00 AM Metoprolol [IVP] IVP 5 mg, administered: 04/23/2016 7:47:00 AM The following Medications were prescribed to the patient: None.
--- NOTE | 2016-04-23 13:39 | ED MAR SUMMARY ---
..... Medication Administration Record [facility] [address] [place] [address] Patient: YARED ROSADO Visit ID: [id number] 36y, F Weight: 101.6 kg Height/Length: 69 in BMI: 33.1 ALLERGIES: Penicillins, Aspirin Given 00:52 04/23/2016 Stacey Bruno R.N. Medication Administered: NITROGLYCERIN [SL], Dose: 0.4 mg Tablets SL. Medication Ordered: NitroGLYCERIN SL 0.4 mg (x3 PRN chest pain. hold for SB < 120 or map < 65). Given 00:53 04/23/2016 Tiffany James, Medication Administered: ZOFRAN [IVP] (ONDANSETRON HCL), Dose: 4 mg IVP, Site: #1 right AC. Medication Ordered: Zofran IV 4 mg (NOW). Given 01:00 04/23/2016 Stacey Bruno R.N. Medication Administered: NITROGLYCERIN [SL], Dose: 0.4 mg Tablets SL. Medication Ordered: NitroGLYCERIN SL 0.4 mg (x3 PRN chest pain. hold for SB < 120 or map < 65). Given 01:10 04/23/2016 Stacey Bruno R.N. Medication Administered: NITROGLYCERIN [SL], Dose: 0.4 mg Tablets SL. Medication Ordered: NitroGLYCERIN SL 0.4 mg (x3 PRN chest pain. hold for SB < 120 or map < 65). Given 03:23 04/23/2016 Stacey Bruno R.N. Medication Administered: MACROBID [PO], Dose: 100 mg Capsules PO. Medication Ordered: Macrobid PO 100 mg (NOW). Given 03:34 04/23/2016 Stacey Bruno R.N. Medication Administered: GI COCKTAIL WHITE [PO] (SIMETHICONE), Dose: 30 mL Oral Suspension PO. Medication Ordered: GI Cocktail WHITE PO 30 mL (NOW). Given 03:43 04/23/2016 Stacey Bruno R.N. Medication Administered: NITROGLYCERIN [SL], Dose: 0.4 mg Tablets SL. Medication Ordered: NitroGLYCERIN SL 0.4 mg (x3 PRN Chest Pain). Given 03:50 04/23/2016 Stacey Bruno R.N. Medication Administered: NITROGLYCERIN [SL], Dose: 0.4 mg Tablets SL. Medication Ordered: NitroGLYCERIN SL 0.4 mg (x3 PRN Chest Pain). Given 04:00 04/23/2016 Stacey Bruno R.N. Medication Administered: NITROGLYCERIN [SL], Dose: 0.4 mg Tablets SL. Medication Ordered: NitroGLYCERIN SL 0.4 mg (x3 PRN Chest Pain). Given 04:08 04/23/2016 Stacey Bruno R.N. Medication Administered: PLAVIX [PO] (CLOPIDOGREL BISULFATE), Dose: 600 mg Tablets PO. Medication Ordered: Plavix PO 600 mg (HIGH ALERT MEDICATION, NOW). Given 07:19 04/23/2016 Melissa Avelar R.N. Medication Administered: ACETAMINOPHEN [PO] (APAP), Dose: 650 mg PO. Medication Ordered: Acetaminophen PO 650 mg (NOW). Given 07:47 04/23/2016 Melissa Avelar R.N. Medication Administered: METOPROLOL [IVP] (METOPROLOL TARTRATE), Dose: 5 mg IVP, Site: #2 left hand. Medication Ordered: Metoprolol IV 5 mg (NOW).
== END 2016-04-23 10:45 | disposition short-term general hospital (02) ==
LOC: ED SRH 22:53
DX: I21.4 Non-ST elevation (NSTEMI) myocardial infarction (principal); N39.0 Urinary tract infection, site not specified; F19.10 Other psychoactive substance abuse, uncomplicated; Z79.891 Long term (current) use of opiate analgesic; F17.210 Nicotine dependence, cigarettes, uncomplicated; Z88.0 Allergy status to penicillin; Z88.6 Allergy status to analgesic agent